=== PATIENT | male | born 1985 | race African-American/Black ===

== ENCOUNTER 2018-12-13 04:34 | Emergency (ER) | payer SELFPAY ==
[~2018-12-13] VITALS: Ht 185.4 cm; Wt 84.0 kg
[2018-12-13 04:45] VITALS: BP 135/83; PULSE 71; RESP 18; Ht 185.4 cm; Wt 84.0 kg
--- NOTE | 2018-12-13 04:59 | ERD ---
ER Documentation Chief Complaint Chief Complaint C/O RLQ AP AND RT TESTICULAR PAIN X1 MONTH HPI 33-year-old male presents with right-sided testicle pain. He states he feels a bump in there. Is been about a month. However he states it was not painful and is gotten painful within the last 4 days. No recent unprotected sex. No penile discharge. No fever. No nausea or vomiting. ROS All systems reviewed and are negative except as per history of present illness. Medications Home Meds Active Scripts Cefdinir (Cefdinir) 300 Mg Capsule, 300 MG PO BID for epididymitis for 14 Days, #60 CAP Prov:ARISTEO QUILES 12/13/18 Allergies Allergies: Coded Allergies: No Known Allergy (Unverified , 12/13/18) PMhx/Soc Medical and Surgical Hx: pt denies Medical Hx, pt denies Surgical Hx Hx Alcohol Use: No Hx Substance Use: Yes Hx Tobacco Use: No Smoking Status: Current every day smoker FmHx Family History: No diabetes Physical Exam Vitals Physical Exam Const: No acute distress Head: Atraumatic Eyes: Normal Conjunctiva ENT: Normal External Ears, Nose and Mouth. Neck: Full range of motion. No meningismus. Resp: Clear to auscultation bilaterally Cardio: Regular rate and rhythm, no murmurs Abd: Soft, non tender, non distended. Testicular: Right testicle mildly swollen and tender to palpation, no masses appreciated Results 24 hrs Laboratory Tests Test 12/13/18 05:08 Bedside Urine pH (LAB) 6.0 Bedside Urine Protein (LAB) Negative Bedside Urine Glucose (UA) Negative Bedside Urine Ketones (LAB) Negative Bedside Urine Blood Negative Bedside Urine Nitrite (LAB) Negative Bedside Urine Leukocyte Esterase (L Negative Current Medications Medications Dose Sig/[place] Start Time Status Last (Trade) Ordered Route PRN Stop Time Admin Dose Reason Admin 1 tab ONCE ONCE 12/13/18 DC 12/13/18 Acetaminophen PO 05:00 12/13/18 05:06 / 05:01 Hydrocodone Bitart ([place] (5/325)) Ceftriaxone 250 mg ONCE ONCE 12/13/18 DC 12/13/18 Sodium IM 08:00 12/13/18 07:38 (Rocephin) 08:01 Lidocaine 5 ml ONCE ONCE 12/13/18 DC 12/13/18 (Xylocaine INJ 08:00 12/13/18 07:38 1% (Mpf)) 08:01 1,000 mg ONCE ONCE 12/13/18 DC 12/13/18 Azithromycin PO 08:00 12/13/18 07:38 (Zithromax) 08:01 Procedures/MDM Patient has testicular pain. Urine ordered and testicular ultrasound ordered. Findings concerning for epididymitis. Patient will be placed on antibiotic therapy. Patient counseled regarding my diagnostic impression and care plan. Prior to discharge all questions answered. Pt agrees with treatment plan and understands strict return precautions. Pt is instructed to follow up with primary care provider within 24-48 hours. Precautionary instructions provided including instructions to return to the ER if not improving or for any worsening or changing symptoms or concerns. Departure Diagnosis: Primary Impression: Epididymitis Condition: Stable OSWALDO GLEASON PA-C December 13, 2018 04:59
[2018-12-13] MEDS ORDERED: HYDROCODONE/APAP (5/325) TAB PO ONE (05:00)
[2018-12-13] MEDS ORDERED: CEFD300C2 PO (07:40)
[2018-12-13] MEDS ORDERED: CEFTRIAXONE 250 MG INJ IM ONE (08:00)
[2018-12-13] MEDS ORDERED: AZITHROMYCIN 500 MG TAB PO ONE (08:00)
[2018-12-13] MEDS ORDERED: LIDOCAINE 1% (MPF) 5 ML VIAL INJ ONE (08:00)
== END 2018-12-13 07:53 | disposition home or self-care (01) ==
LOC: FTE 04:34
DX: N45.1 Epididymitis (principal); F17.210 Nicotine dependence, cigarettes, uncomplicated
CPT/HCPCS: 76870; 81003; J0696; 96372